=== PATIENT | female | born 1990 | race Caucasian/White ===

== ENCOUNTER 2023-09-08 14:34 | Outpatient (CLI) | payer BC, SELFPAY | END 2023-09-08 14:35 | disposition home or self-care (01) | LOC: NFLDREF 14:35 | PROVIDERS: PCP Family Medicine; Visit Provider Family Medicine | DX: E66.9 Obesity, unspecified (principal); F41.9 Anxiety disorder, unspecified | CPT/HCPCS: 84443 ==

== ENCOUNTER 2024-06-07 08:30 | Outpatient (CLI) | payer OTHER, SELFPAY ==
--- OUTSIDE RECORDS SUMMARY | 2024-06-07 13:14 | XMS_ITS | Encounter Summary ---
Author Organization [facility] Address [address] [place] [address] Care Team Providers Care Box Printing Machine Operator Name Role Phone No Primary/Referring, Phy Primary Care Provider Unavailable Reason for Visit * Reason Comments LACERATION, ARM Left forearm Encounter Details Date Type Department Care Team ([facility] st Contact Info) Description 03/20/2024 3:00 PM CDT Office [place] [facility] [address] [facility] [place] [address] Vita Miller PA-C [address] [place] [address] Forearm laceration, left, initial encounter (Primary Dx) Social History Tobacco Use Types Packs/Day Years Used Date Smoking Tobacco: Former Cigarettes Smokeless Tobacco: Never Comments:some smoking after last in 2018, occasional Alcohol Use Standard Drinks/Week Comments Not Currently 0 (1 standard drink = 0.6 oz pur e alcohol) Depression Answer Date Recor ded Last EPDS Total Score 14 11/16/2022 Last EPDS Self Harm Result 1-->hardly ever 11/16 Sex and Gender Information Value Date Recorded Sex Assigned at Not on file Gender Identity Not on file Sexual Orientation Not on file documented as of this encounter Last Filed Vital Signs Vital Sign Reading Time Taken Comments Blood Pressure 95/70 03/20/2024 3:03 PM CDT Pulse 77 03/20/2024 3:03 PM CDT Temperature 36.7 ??C (98 ??F) 03/20/2024 3:03 PM CDT Respiratory Rate 18 03/20/2024 3:03 PM CDT Oxygen Saturation 96% 03/20/2024 3:03 PM CDT Inhaled Oxygen Concentration - - Weight 61.2 kg (135 lb) 03/20/2024 3:03 PM CDT Height - - Body Mass Index 21.14 01/20/2023 6:10 AM CDT documented in this encounter Patient Instructions * Patient Instructions* Vita Miller PA-C - 03/20/2024 3:00 PM CDT Return for suture removal in 7-10 days. Please see the end of this packet for additional information regarding symptomatic cares and signs or symptoms that would warrant return for further evaluation. * Attachments The following attachments cannot be sent through Care Everywhere. * Lacerations: Stitches (Zimbabwean) documented in this encounter Progress Notes * Vita Miller PA-C - 03/20/2024 3:00 PM CDTAssociated Order(s): Laceration Repair Post-Procedure Diagnose(s): Forearm laceration, left, initial encounter Images from the original note were not included. Rooming notes: Laceration initial Where did this injury happen? At [facility] Date/time of Injury: 1 day(s) ago Where is your laceration located? Arm: left forearm Are you concerned of anything still in the wound? YES Did you clean the wound immediately with soap and water? Yes Is there any blood, pus or watery drainage coming from the wound? YES blood Do you have any numbness around the injured area? YES Do you have any weakness around the injured area? No Have you had a fever? No Shirley Leyva SUBJECTIVE: Courtney Crockett is a 33 y.o. old female who presents to the urgent care today by herself for evaluation of laceration to the left forearm sustained from a broken glass window yesterday evening around 8:00 p.m. at home. Patient wash the wound with tap water and applied butterfly bandage. I have personally reviewed the patient's allergies, medications, and past medical history in detailand updated the patient record as necessary. OBSERVED: Filed Vitals: 03/20/24 1503 BP: 95/70 Pulse: 77 Resp: 18 Temp: 98 ??F (36.7 ??C) TempSrc: Oral SpO2: 96% Weight: 135 lb (61.2 kg) Physical Exam Vitals reviewed. Constitutional: General: She is not in acute distress. Musculoskeletal: Left forearm: Laceration present. Arms: Comments: Distal sensation intact. Full range of motion of wrist and fingers. Skin: Comments: C-shaped laceration on the inner forearm of the left arm. Approximately 2.5 cm in length. ASSESSMENT / PLAN ICD-10-CM 1. Forearm laceration, left, initial encounter S51.812A Discussed benefits versus risk of wound closure. Given the location, gaping nature, and her work, through shared decision-making elected to perform wound closure with sutures. Laceration Repair Date/Time: 03/20/2024 4:36 PM Performed by: Vita Miller PA-C Authorized by: Vita Miller PA-C Consent: Consent obtained: Verbal Consent given by: Patient Alternatives discussed: No treatment and observation Anesthesia: Anesthesia method: Local infiltration Laceration details: Location: Shoulder/arm Shoulder/arm location: L lower arm Treatment: Amount of cleaning: Extensive Irrigation method: Pressure wash Visualized foreign bodies/material removed: no Skin repair: Repair method: Sutures Suture size: 5-0 Suture technique: Simple interrupted Number of sutures: 5 Repair type: Repair type: Simple Post-procedure details: Dressing: Antibiotic ointment and adhesive bandage Procedure completion: Tolerated well, no immediate complications Comments: Return for suture removal in 7-10 days. Tdap up-to-date. Discussed signs and symptoms that would warrant return to UC or ER in the interim. Detailed symptomatic cares and instructions discussed and outlined in AVS. They express understanding and are in agreement with the plan. Vita Miller PA-C 03/20/2024, 5:23 PM documented in this encounter Plan of Treatment Not on file documented as of this encounter Procedures Procedure Name Priority Date/Time Associated Diagnosis Comments LACERATION REPAIR Routine 03/20/2024 4:3 6 PM CDT Forearm laceration, left, initial encounter documented in this encounter Results * Laceration Repair (03/20/2024 4:36 PM CDT) Narrative EXTERNAL RESULTS - 03/20/2024 4:36 PM CDT Vita Miller PA-C ? 03/20/2024 ??8:20 PM Laceration Repair Date/Time: 03/20/2024 4:36 PM Performed by: Vita Miller PA-C Authorized by: Vita Miller PA-C ?? Consent: ??Consent obtained: ??Verbal ??Consent given by: ??Patient ??Alternatives discussed: ??No treatment and observation Anesthesia: ??Anesthesia method: ??Local infiltration Laceration details: ??Location: ??Shoulder/arm ??Shoulder/arm location: ??L lower arm Treatment: ??Amount of cleaning: ??Extensive ??Irrigation method: ??Pressure wash ??Visualized foreign bodies/material removed: no ?? Skin repair: ??Repair method: ??Sutures ??Suture size: ??5-0 ??Suture technique: ??Simple interrupted ??Number of sutures: ??5 Repair type: ??Repair type: ??Simple Post-procedure details: ??Dressing: ??Antibiotic ointment and adhesive bandage ??Procedure completion: ??Tolerated well, no immediate complications Comments: ?? Return for suture removal in 7-10 days. ?? Tdap up-to-date. Vita Miller PA-C [facility] PROCEDURES EXTERNAL RESULTS documented in this encounter Visit Diagnoses Diagnosis Forearm laceration, left, initial encounter- Primary documented in this encounter Care Teams Box Printing Machine Operator Relationship Specialty Start Date End Date No Primary/Referring, Phy PCP - General 10/17/21 documented as of this encounter
--- OUTSIDE RECORDS SUMMARY | 2024-06-07 13:14 | XMS_ITS | Encounter Summary ---
Author Organization [facility] Address [address] [place] [address] Care Team Providers Care Garbage Depot Worker Name Role Phone Clinic, [facility] Primary Care Provider Reason for Visit * Reason Comments Back Pain Letter Request For work Encounter Details Date Type Department Care Team (Late st Contact Info) Description 06/02/2024 12:35 PM CDT Office Visit [address] [address] Romina Sanchez PA-C [address] [place] [address] Acute bilateral low back pain without sciatica Social History Tobacco Use Types Packs/Day Years Used Date Smoking Tobacco: Never Smokeless Tobacco: Never Alcohol Use Standard Drinks/Week Comments Not Currently 0 (1 standard drink = 0.6 oz pur e alcohol) Adolescent Education Answer Date Record ed Getting School Help Needed Not on file 05/28 Sex and Gender Information Value Date Recorded Sex Assigned at Not on file Gender Identity Not on file Sexual Orientation Not on file documented as of this encounter Last Filed Vital Signs Vital Sign Reading Time Taken Comments Blood Pressure 124/76 06/02/2024 12:43 PM CDT Pulse 63 06/02/2024 12:43 PM CDT Temperature 36.7 ??C (98.1 ??F) 06/02/2024 12:43 PM C DT Respiratory Rate 17 06/02/2024 12:43 PM CDT Oxygen Saturation 98% 06/02/2024 12:43 PM CDT Inhaled Oxygen Concentration - - Weight - - Height - - Body Mass Index - - documented in this encounter Patient Instructions * Attachments The following attachments cannot be sent through Care Everywhere. * Back Pain (Haitian) documented in this encounter Progress Notes * Romina Sanchez PA-C - 06/02/2024 12:35 PM CDT Assessment & Plan Acute bilateral low back pain without sciatica Patient was seen for recheck of her low back pain with significant improvement of her symptoms. Shewas given a refill of Robaxin to use as needed. May continue ice, heat, consider physical therapy for education for any future episodes of back pain. She may return to full work duties without restrictions effective today. - methocarbamol (ROBAXIN) 500 MG tablet Dispense: 30 tablet; Refill: 0 No follow-ups on file. Romina Sanchez PA-C [facility] Mariana Valdez is a 33 year old female who presents to clinic today for the following health issues: Chief Complaint Patient presents with Back Pain Letter Request For work HPI Patient was seen 05/29/2024 for acute back pain. She was given a work excuse with lifting limitations on that date. Much improved. She still has minimal low back ache with some mild radiation into the left leg belowthe level of the knee but this is quite improved from previous pain level. She has been able to bend, twist, change position, and squat without difficulty the last 24 hours. She is ready to return towork without restrictions but does need a note to do so. She denies any current bowel or bladder dys function. She was hoping to get a refill of the muscle relaxant as that is quite helpful for her. She will be finishing up prednisone. Review of Systems Constitutional, HEENT, cardiovascular, pulmonary, gi and gu systems are negative, except as otherwise noted. Objective BP 124/76 Pulse 63 Temp 98.1 ??F (36.7 ??C) Resp 17 SpO2 98% Physical Exam Musculoskeletal: Lumbar back: No swelling, tenderness or bony tenderness. Normal range of motion. Negative right straight leg raise test and negative left straight leg raise test. No scoliosis. Pt ambulates well without antalgic gait, is able to rise up and off exam table. SLR negative B. Figure 4 negative B. Muscular strength, sensation and DTR are symmetrical and WNL for LE B documented in this encounter Plan of Treatment Not on file documented as of this encounter Visit Diagnoses Diagnosis Acute bilateral low back pain without sciatica documented in this encounter Care Teams Garbage Depot Worker Relationship Specialty Start Date End Date Clinic, [address] [address] PCP - General 04/18/17 documented as of this encounter
--- OUTSIDE RECORDS SUMMARY | 2024-06-07 13:14 | XMS_ITS | Clinical Summary ---
Author Organization [facility] Address [address], [place] [address] Care Team Providers Care Fundraising Sale Representative Name Role Phone No Primary/Referring, Phy Primary Care Provider Unavailable Source Comments You are receiving this document as you are listed as the primary care provider,follow-up provider, or the patient has been referred to you for consultation.This is in compliance with the Medicare and[facility] EHR Incentive Program,which states Providers who transition their patient to another setting of careor provider of care or refers their patient to another provider of care shouldprovide summary care record for each transition of care or referral. [employer] Allergies No known active allergies Medications Medication Sig Dispensed Refills Start Date End Date Status amphetamine-dextroa mphetamine (ADDERALL) 20 MG tablet Take 1 Tablet (20 mg) by mouth three times a day. 07/12/2023 Active sertraline (ZOLOFT) 25 MG tablet Take 2 Tablets (50 mg) by mouth daily. Start by taking 1/2 tablet (12.5 mg) for one week. Then increase to 25 (1 tablet) for one week. Then increase to 2 tablets daily. 90 Tablet 1 08/06/2023 Active Additional Information Patient not taking.Reported on 10/06/2023 hydrOXYzine HCl (ATARAX) 25 MG tablet Take 2 Tablets (50 mg) by mouth three times a day as needed for Anxiety. 90 Tablet 1 08/06/2023 Active Additional Information Patient not taking.Reported on 10/06/2023 FLUoxetine (PROZAC) 10 MG capsule Take 1 Capsule (10 mg) by mouth daily. 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 Resolved Problems Problem Noted Date Diagnosed Date Resolved Date GBS bacteriuria 12/30/2022 06/30/2023 Acute blood loss anemia 11/19/201508/06 Excessive weight gain during in third trimester 09/16/2015 08/20/2017 Encounter for care in first trimester of first 05/07/2015 11/25/2015 Overview (11/19/2015): EDC 11/09/14 by 11w2d US not c/w LMP FOB [place] Transfer of care from [place] at 13 weeks Rubella nonimmune QUAD Considering CF testing UTI in early 2nd trimester, treated with Ammox, JAVY-negative [facility] Abnormal Papanicolaou smear of cervix 08/09/2014 05/07/2015 Overview (04/28/2017): Abnormal Pap smear Frequent UTI 08/09/2014 05/07/2015 Tobacco user 08/09/2014 05/07/2015 Encounters Date Type Department Care Team Description 03/20/2024 3:00 PM CDT Office Visit [facility] [address] [place] [address] Vita Miller PA-C Forearm laceration, left, initial encounter (Primary Dx) from Last 3 Months Immunizations Name Administration Dates Next Due 4vHPV (Gardasil) 08/06/2008,04/06/2008, 8 DTP 02/01/1991,1990,1990 DTaP 11/19/1994 HepB Ped/Adol (0-18 yrs) 12/19/2002,07/11/2002,0 05/26/2002 Hib, Unspecified Formulation 01/22/1992 MCV4 Menveo 2m.+ (two vial) 02/19/2009 MMR 11/19/2015,11/19/1994,01/22/1992 OPV, Trivalent (Orimune or tOPV) 11/19/1994,01/05,1990,1990 Td 06/26/2003 Tdap 12/03/2022, 3(Deferred: Patient Refused - will return 11/19/22),12/26/2019,03/04/2018,06/07/2014 Family History Medical History Relation Name Comments No Known Problems Father No Known Problems Mother No Known Problems Brother No Known Problems Maternal Grandfather No Known Problems Maternal Grandmother No Known Problems Paternal Grandfather No Known Problems Paternal Grandmother No Known Problems Sister 1 Kidney Disorder Sister 2 renal failur e Relation Name Status Comments Father Alive Mother Alive Brother Alive Maternal Grandfather Maternal Grandmother Alive Paternal Grandfather Paternal Grandmother Sister 1 Alive Sister 2 Social History Tobacco Use Types Packs/Day Years [...] on file Sexual Orientation Not on file Last Filed Vital Signs Vital Sign Reading Time Taken Comments Blood Pressure 95/70 03/20/2024 3:03 PM CDT Pulse 77 03/20/2024 3:03 PM CDT Temperature 36.7 ??C (98 ??F) 03/20/2024 3:03 PM CDT Respiratory Rate 18 03/20/2024 3:03 PM CDT Oxygen Saturation 96% 03/20/2024 3:03 PM CDT Inhaled Oxygen Concentration - - Weight 61.2 kg (135 lb) 03/20/2024 3:03 PM CDT Height 170.2 cm (5' 7) 01/20/2023 6:10 AM CDT Body Mass Index 21.14 01/20/2023 6:10 AM CDT Plan of Treatment Health Maintenance Due Date Last Done Comments Adult Preventive Visit 2008 Cervical Cancer Screening Due 04/19/2015 04/18/2015 COVID-19 Vaccine ( season) 2024 Influenza (#1) 2024 DTaP/Tdap/Td (9 - Tdap) 12/03/2032 12/04/19, 12/26/2019, 03/04/2018, Additional history exists Zoster/Shingles (1 of 2) 2040 Hib Completed 01/22/1992 IPV (Polio) Completed 11/19/1994, 01/05, 1990, Additional history exists HepB Completed 12/19/2002, 01/2002, 05/26/2002 HPV Vaccine Completed 08/06/2008, 09/2007, 12/19/2007 MCV4 Completed 02/19/2009 HIV Screening (Preventive Services) Completed 12/03/2022, 04/18/2015 Hep C Screening (Preventive Services) Completed 12/03/2022 HepA Aged Out No longer eligi ble based on patient's age to complete this topic Pneumococcal Aged Out No longer eligi ble based on patient's age to complete this topic Procedures Procedure Name Priority Date/Time Associated Diagnosis Comments LACERATION REPAIR Routine 03/20/2024 4:3 6 PM CDT Forearm laceration, left, initial encounter HIV 1/2 AG/AB 4TH GEN Routine 12/03/2022 3:08 PM CDT in multigravida HEPATITIS C ANTIBODY, WITH REFLEX Routine 12/03/2022 3:08 PM CDT in multigravida PAP TEST, ROUTINE Routine 04/18/2015 4:0 5 PM CDT Encounter for supervision of normal first in first trimester [V22.0] from Last 3 Months or Most Recently Relevant to Health Maintenance Results * Laceration Repair (03/20/2024 4:36 PM [...] days. ?? Tdap up-to-date. Vita Miller PA-C [facility] PROCEDURES EXTERNAL RESULTS * HIV 1/2 Ag/Ab 4th Generation (12/03/2022 3:08 PM CDT) HIV 1/2 Antigen/Antib tasha (4th generation) Negative (Non Reactive) Negative (Non Reactive) 12/04/2022 10:08 AM CDT [facility] Comment:HIV-1 p24 Antigen an d HIV-1/HIV-2 Antibody not detected Blood Venipuncture / Unknown 12/03/2022 3:08 PM CDT 12/03/2022 3:11 PM CDT Cony Moreno MD LAB_1 [facility] [address] [place] [address], [facility] [phone] * Hepatitis C Antibody, with Reflex (12/03/2022 3:08 PM CDT) Pathologist [facility] Hepatitis C Antibody Negative (Non Reactive) Negative (Non Reactive) 12/03/2022 7:20 PM CDT [facility] Comment:Antibodies to HCV no t detected. Does not exclude the possiblity of exposure to HCV. Blood Venipuncture / Unknown 12/03/2022 3:08 PM CDT 12/03/2022 3:11 PM CDT Cony Moreno MD LAB_1 Performing Organization Address City/[facility]/ZIP Co de Phone Number [facility] [address] [address], [facility] [phone] * PAP TEST, ROUTINE (04/18/2015 4:05 PM CDT) Pathologist [facility] Cytology, Pap (NOTE) Culture Media Laboratory Assistant Cytology Report Patient Name: COURTNEY CROCKETT Taken: 04/18/2015 Received: 04/18/2015 Reported: 04/29/2015 Physician(s): LAN AUSTIN ?Source of Specimen Pap Test, Routine Cervical/Endocervi sheri: ?Specimen Adequacy ?Satisfactory for evaluation. ??Endocervical component absent. ? Final Cytologic Interpretation/Res ult NEGATIVE FOR INTRAEPITHELIAL LESION OR MALIGNANCY (NILM) ?? Electronically Signed Out By Cristina SIMPSON(ASCP) Cristina SIMPSON(ASCP) ? Pap Smear History Date of Last Menstrual Period: 01/18/2015 ?? Microscopic Description Microscopic examination is performed. [facility] Department of Pathology [address] [place] [address] ??[id number] [facility] 04/18/2015 4:05 PM CDT 04/18/2015 6:00 PM CDT Lan Austin MD LAB_1 [facility] [address] [place] [address] from Last 3 Months or Most Recently Relevant to Health Maintenance Advance Directives * Full Code (Latest Code Status on File) Date Activated Date Inactivated Comments 01/20/2023 6:06 AM 01/22/2023 6:29 PM * Full Code Date Activated Date Inactivated Comments 11/14/2015 3:21 PM 11/19/2015 5:16 PM * Full Code Date Activated Date Inactivated Comments 10/24/2014 12:42 PM 10/24/2014 7:17 PM Care Teams Fundraising Sale Representative Relationship Specialty Start Date End Date No Primary/Referring, Phy PCP - General 10/17/21
--- OUTSIDE RECORDS SUMMARY | 2024-06-07 13:14 | XMS_ITS | Encounter Summary ---
Author Organization [facility] Address [address] [place] [address] Care Team Providers Care Sales Assistant Displays Name Role Phone Clinic, [facility] Primary Care Provider Reason for Visit * Reason Comments Back Pain Lower back couple da ys shooting pain out of no where Encounter Details Date Type Department Care Team (Late st Contact Info) Description 05/29/2024 1:55 PM CDT Office Visit [address] [address] Linda You, [facility] [address] [place] [address] [phone] Acute bilateral low back pain without sciatica (Primary Dx) Social History Tobacco Use Types [...] Sign Reading Time Taken Comments Blood Pressure 120/70 05/29/2024 2:05 PM CDT Pulse 94 05/29/2024 2:05 PM CDT Temperature 36.5 ??C (97.7 ??F) 05/29/2024 2:05 PM CD T Respiratory Rate 18 05/29/2024 2:05 PM CDT Oxygen Saturation 100% 05/29/2024 2:05 PM CDT Inhaled Oxygen Concentration - - Weight - - Height - - Body Mass Index - - documented in this encounter Patient Instructions * Patient Instructions* Linda You PA-C - 05/29/2024 1:55 PM CDT Take Prednisone in the morning and with food. Take Tylenol 1000 mg every 6 hours. I will call you with your urine test result. Avoid bending and lifting anything greater than 20 pounds. Take Robaxin up to 4 times per day. Follow up next week with your PCP for your physical Seek emergency medical attention if you develop saddle numbness or loss of control of bowel function. documented in this encounter Progress Notes * Linda You PA-C - 05/29/2024 1:55 PM CDT Patient presents with: Back Pain: Lower back couple days shooting pain out of no where Clinical Decision Making: Patient experiencing sudden spastic lower back pain after reported heavy lifting throughout the day. Suspect muscle strain. Negative straight leg raise not consistent with disc herniation. No traumasmajorly concerning for vertebral fracture. Patient has close follow-up with primary care for physical in 1 week. Recommend supportive care including prednisone, methocarbamol, and oxycodone for breakthrough pain. Patient concerned about possible kidney involvement although her pain is lower than where the kidneys are. UA completed for reassurance. It is normal. ICD-10-CM 1. Acute bilateral low back pain without sciatica M54.50 UA Macroscopic with reflex to Microscopic and Culture - Clinic Collect predniSONE (DELTASONE) 20 MG tablet methocarbamol (ROBAXIN) 500 MG tablet oxyCODONE (ROXICODONE) 5 MG tablet Patient Instructions Take Prednisone in the morning and with food. Take Tylenol 1000 mg every 6 hours. I will call you with your urine test result. Avoid bending and lifting anything greater than 20 pounds. Take Robaxin up to 4 times per day. Follow up next week with your PCP for your physical Seek emergency medical attention if you develop saddle numbness or loss of control of bowel function. HPI: Courtney Crockett is a 33 year old female who presents today with concerns of bilateral lower back pain that started 2 days ago. No known injury, but she does bend to worm picker things for her kids a lot. 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 [facility] and her kids on the day that is started. She did feel sudden painwhen she was lifting her child into bed. She thought it would sleep off. She has taken Advil, Epsomsalt soak, and a Walnut balm pad. Standing wrong hurts. Moving from sitting to standing worsens things. She reports intermittent radiation into the legs. No previous spine history. History obtained from the patient. Problem List: There are no relevant problems documented for this patient. Past Medical History: Diagnosis Date ADHD Anxiety History of Clostridium difficile colitis Social History Tobacco Use Smoking status: Never Smokeless tobacco: Never Substance Use Topics Alcohol use: Not Currently Review of Systems Vitals: 05/29/24 1405 BP: 120/70 Pulse: 94 Resp: 18 Temp: 97.7 ??F (36.5 ??C) TempSrc: Oral SpO2: 100% Physical Exam Vitals and nursing note reviewed. Constitutional: General: She is not in acute distress. Appearance: She is not toxic-appearing or diaphoretic. HENT: Head: Normocephalic and atraumatic. Right Ear: External ear normal. Left Ear: External ear normal. Eyes: Conjunctiva/sclera: Conjunctivae normal. Pulmonary: Effort: Pulmonary effort is normal. No respiratory distress. Musculoskeletal: Comments: No spinal tenderness. Paraspinous muscles are tender bilaterally in the lumbar region. Negative straight leg raise. Pain seems spastic and patient is moving slowly and guarding. Neurological: Mental Status: She is alert. Psychiatric: Mood and Affect: Mood normal. Behavior: Behavior normal. Thought Content: Thought content normal. Judgment: Judgment normal. Results: Results for orders placed or performed in visit on 05/29/24 UA Macroscopic with reflex to Microscopic and Culture - Clinic Collect Status: Normal Specimen: Urine, Clean Catch Result Value Ref Range Color Urine Yellow Colorless, Straw, Light Yellow, Yellow Appearance Urine Clear Clear Glucose Urine Negative Negative mg/dL Bilirubin Urine Negative Negative Ketones Urine Negative Negative mg/dL Specific [place] Urine 1.015 1.005 - 1.030 Blood Urine Negative Negative pH Urine 7.5 5.0 - 8.0 Protein Albumin Urine Negative Negative mg/dL Urobilinogen Urine 0.2 0.2, 1.0 E.U./dL Nitrite Urine Negative Negative Leukocyte Esterase Urine Negative Negative Narrative Microscopic not indicated At the end of the encounter, I discussed results, diagnosis, medications. Discussed red flags for immediate return to clinic/ER, as well as indications for follow up if no improvement. Patient understood and agreed to plan. Patient was stable for discharge. documented in this encounter Plan of Treatment Not on file documented as of this encounter Procedures Procedure Name Priority Date/Time Associated Diagnosis Comments UA MACROSCOPIC WITH REFLEX TO MICRO AND CULTURE Routine 05/29/2024 2:54 PM CDT Acute bilateral low back pain without sciatica documented in this encounter Results * UA Macroscopic with reflex to Microscopic and Culture - Clinic Collect (05/29/2024 2:54 PM CDT) Color Urine Yellow Colorless, Straw, Light Yellow, Yellow 05/29/2024 2:59 PM CDT [facility] Appearance Urine Clear Clear 05/29/20 2:59 PM CDT [facility] Glucose Urine Negative Negative mg/dL 05/29/2024 2:59 PM CDT [facility] Bilirubin Urine Negative Negative 2:59 PM CDT [facility] Ketones Urine Negative Negative mg/dL 05/29/2024 2:59 PM CDT [facility] Specific [place] Urine 1.015 1.005 - 1.030 05/29/2024 2:59 PM CDT [facility] Blood Urine Negative Negative 05/29/2024 2:59 PM CDT [facility] pH Urine 7.5 5.0 - 8.0 05/29/2024 2:59 PM CDT [facility] Protein Albumin Urine Negative Negative mg/dL 05/29/2024 2:59 PM CDT [facility] Urobilinogen Urine 0.2 0.2, 1.0 E.U./dL 05/29/2024 2:59 PM CDT [facility] Nitrite Urine Negative Negative 05/29/2024 2:59 PM CDT [facility] Leukocyte Esterase Urine Negative Negative 05/29/2024 2:59 PM CDT [facility] Urine URINE SPECIMEN OBTAINED BY CLEAN CATCH PROCEDURE / Unknown Non-blood Collection / Unknown 05/29/2024 2:54 PM CDT 05/29/2024 2:56 PM CDT Narrative [facility] - 05/29/2024 2:59 PM CDT Microscopic not indicated Linda You PA-C LAB - URINE ORDERABL ES [facility] [address] documented in this encounter Visit Diagnoses Diagnosis Acute bilateral low back pain without sciatica- Primary documented in this encounter Care Teams Sales Assistant Displays Relationship Specialty Start Date End Date Clinic, [facility] [address] [place] [address] PCP - General 04/18/17 documented as of this encounter
--- OUTSIDE RECORDS SUMMARY | 2024-06-07 13:14 | XMS_ITS | Encounter Summary ---
Author Organization [facility] Address [address] [place] [address] Care Team Providers Care Surgical Assist Name Role Phone [facility] Primary Care Provider Encounter Details Date Type Department Care Team (Latest Contact Info) Description 06/02/2024 Travel Social History Tobacco Use Types Packs/Day Years [...] on file documented as of this encounter Plan of Treatment Not on file documented as of this encounter Visit Diagnoses Not on filedocumented in this encounter Care Teams Surgical Assist Relationship Specialty Start Date End Date [facility] [address] [place] [address] PCP - General 04/18/17 documented as of this encounter
--- OUTSIDE RECORDS SUMMARY | 2024-06-07 13:14 | XMS_ITS | Encounter Summary ---
Author Organization [facility] Address [address] [place] [address]. [place] [address] Care Team Providers Care Personal Coach Name Role Phone [facility] Primary Care Provider Encounter Details Date Type Department Care Team (Late st Contact Info) Description 05/29/2024 Telephone [facility] [place] [id number] [place], [place] [address] [address] Linda You PA-C [facility] [address] [place] [phone] Social History Tobacco Use Types Packs/Day Years [...] on file documented as of this encounter Miscellaneous Notes * Telephone Encounter - Linda You PA-C - 05/29/2024 3:17 PM CDT Left message to call back. Urine test was negative for any signs of infection or blood in the urine. No change to treatment plan. documented in this encounter Plan of Treatment Not on file documented as of this encounter Visit Diagnoses Not on filedocumented in this encounter Care Teams Personal Coach Relationship Specialty Start Date End Date [facility] [address] [place] [address] PCP - General 04/18/17 documented as of this encounter
--- OUTSIDE RECORDS SUMMARY | 2024-06-07 13:14 | XMS_ITS | Clinical Summary ---
Author Organization [employer] [facility] Address [place], [place] [address] Care Team Providers Care Marketing Budget Analyst Name Role Phone Pcp, No Primary Care Provider Unavailabl e Allergies No known active allergies Medications Medication Sig Dispensed Refills Start Date End Date Status Amphetamine-Dextroamph etamine (ADDERALL) 30 mg tablet Take 1 tablet by mouth once daily 0 10/30/2016 Active Active Problems Problem Noted Date Diagnosed Date Urinary tract infection, site not specified 04/07 Depressive disorder, not elsewhere classified Impetigo 01/10/2009 Urinary frequency 08/28/2008 Hemangioma of skin and subcutaneous tissue 07/16 Unspecified otitis media 07/16/2008 Other chronic allergic conjunctivitis 05/06/2007 Allergic rhinitis, cause unspecified 05/06/2007 Dysuria 04/18/2007 Herpes simplex without mention of complication 0 04/06/2007 Infective otitis externa, unspecified 04/06/2007 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 Leukorrhea, not specified as infective 6 Immunizations Name Administration Dates Next Due Human Papilloma Virus Vaccine 08/06/2008, 008,12/19/2007 Meningococcal Vaccine (Menactra) 02/19/2009 Social History Tobacco Use Types Packs/Day Years Used Date Smoking Tobacco: Never Assessed Sex and Gender Information Value Date Recorded Sex Assigned at Not on file Gender Identity Not on file Sexual Orientation Not on file Obstetrics History Last Filed Vital Signs Vital Sign Reading Time Taken Comments Blood Pressure 110/70 10/30/2016 1:20 PM POSTAL SUPERINTENDENT Pulse 84 02/09/2008 10:37 AM CDT Temperature 36.7 ??C (98.1 ??F) 04/30/2009 8:33 AM CD T Respiratory Rate 14 10/30/2016 1:20 PM POSTAL SUPERINTENDENT Oxygen Saturation - - Inhaled Oxygen Concentration - - Weight 73.5 kg (162 lb) 10/30/2016 1:20 PM POSTAL SUPERINTENDENT Height 170.2 cm (5' 7.01) 04/26/2009 11:49 AM C DT Body Mass Index - - Plan of Treatment Health Maintenance Due Date Last Done Comments Tdap 2001 Depression screening for age 12+ 2002 HIV for age 15-65 2005 BMI (ht and wt on same day) for age 18+ 2008 Hepatitis C screening for ag e 18-79 2008 Tetanus booster 2010 COVID-19 vaccine series ( season) 2024 Influenza for age 9-49 05/07/2024 Pap test for age 21-65 03/16/2026 , 03/16/2023, 07/18/2019 Pneumococcal series for age 6-64 Aged Out No longer eligible b ased on patient's age to complete this topic Procedures Procedure Name Priority Date/Time Associated Diagnosis Comments HPV HIGH RISK Routine 03/16/2023 1:15 PM CDT from Last 3 Months or Most Recently Relevant to Health Maintenance Results * HPV HIGH RISK (03/16/2023 1:15 PM CDT) TYPE 16 Negative Negative 03/22/2023 2:23 PM CDT [facility] TYPE 18 Negative Negative 03/22/2023 2:23 PM CDT [facility] OTHER HIGH RISK TYPES Negative Negative 03/22/2023 2:23 PM CDT [facility] Other (Cervical/Vagina l) 03/16/2023 1:15 PM CDT 03/17/2023 5:32 PM [facility]T [facility] 03/22/2023 2:23 PM CDT HPV types 16, 18, 31, 33, 35, 39, 45, 51, 52, 56, 58, 59, 66 and 68 DNA were undetectable or below the pre-set threshold. Methodology: [employer] 4800 HPV Test Mary Lawson MD MICROBIOLOGY [facility] [address] [place] [address], from Last 3 Months or Most Recently Relevant to Health Maintenance Care Teams Marketing Budget Analyst Relationship Specialty Start Date End Date Pcp, No . PCP - General 10/30/16
--- OUTSIDE RECORDS SUMMARY | 2024-06-07 13:14 | XMS_ITS | Referral Summary ---
Author Organization [facility] Address [address] [place] [address] Care Team Providers Care Field Cane Scaler Name Role Phone [facility], [facility] Primary Care Provider Encounters Date Type Department Care Team Description 06/02/2024 Travel 06/02/2024 12:35 PM CDT Office Visit [address] [address] Romina Sanchez PA-C Acute bilateral low back pain without sciatica 05/29/2024 Telephone [facility] Centralized Scheduling [address] [place] [address] [facility] Medical Results 05/29/2024 Telephone [facility] [address] [address] Linda You PA-C 05/29/2024 Travel 05/29/2024 1:55 PM CDT Office Visit [address] [phone] Linda You PA-C Acute bilateral low back pain without sciatica (Primary Dx) from Last 3 Months Allergies No known active allergies Medications Medication Sig Dispensed Refills Start Date End Date Status Amphetamine-Dextr oamphetamine (ADDERALL PO) Take 30 mg by mouth 2 times daily Active LORazepam (ATIVAN) 0.5 MG tablet Take 0.5-1 tablets (0.25-0.5 mg) by mouth every 8 hours as needed for anxiety 6 tablet 04/17/2017 Active methocarbamol (ROBAXIN) 500 MG tabletIndications :Acute bilateral low back pain without sciatica Take 1 tablet (500 mg) by mouth 4 times daily as needed for muscle spasms. Do not drive within 8 hours of taking a dose 30 tablet 06/02/2024 Active predniSONE (DELTASONE) 20 MG tabletIndications :Acute bilateral low back pain without sciatica Take 2 tablets (40 mg) by mouth daily for 5 days. Take in the morning and with food 10 tablet 05/29/2024 06/03/2024 methocarbamol (ROBAXIN) 500 MG tabletIndications :Acute bilateral low back pain without sciatica Take 1 tablet (500 mg) by mouth 4 times daily as needed for muscle spasms. Do not drive within 8 hours of taking a dose 20 tablet 05/29/2024 06/02/2024 Discontinued( Reorder (No AVS)) oxyCODONE (ROXICODONE) 5 MG tabletIndications :Acute bilateral low back pain without sciatica Take 1 tablet (5 mg) by mouth every 6 hours as needed for pain. 12 tablet 05/29/2024 06/02/2024 Social History Tobacco Use Types Packs/Day Years [...] CDT Inhaled Oxygen Concentration - - Weight 90.5 kg (199 lb 8 oz) 02/21/2020 10:49 AM CDT Height 170.2 cm (5' 7) 09/25/2019 8:51 AM SC[facility]TS Body Mass Index 31.25 09/25/2019 8:51 AM SCOUTS Plan of Treatment Not on file Procedures Procedure Name Priority Date/Time Associated Diagnosis Comments UA MACROSCOPIC WITH REFLEX TO MICRO AND CULTURE Routine 05/29/2024 2:54 PM CDT Acute bilateral low back pain without sciatica ABSTRACT HIV Routine 07/18/2019 from Last 3 Months or Most Recently Relevant to Health Maintenance Results * UA Macroscopic with reflex to [...] 05/29/2024 2:59 PM CDT [facility] Specific [place] Urine 1.015 1.005 - 1.030 05/29/2024 2:59 [...] 2:59 PM CDT Microscopic not indicated Linda A Avelino PA-C LAB - URINE ORDERABL ES [facility] [address] * ABSTRACT HIV (07/18/2019) HIV 1&2 EXT Non-Reacti ve Non-Reacti ve [facility] Blood specimen (specimen) 07/18/2019 Narrative Marcie Valdez - 07/18/2019 [facility] External Result Historical Provider LAB - HIM EXTERNAL R ESULT Performing Organization Address City/[facility]/ZIP Co de Phone Number [facility] [address] [place] [address] from Last 3 Months or Most Recently Relevant to Health Maintenance Care Teams Field Cane Scaler Relationship Specialty Start Date End Date Clinic, [facility] [address] [place] [address] PCP - General 04/18/17
--- OUTSIDE RECORDS SUMMARY | 2024-06-07 13:14 | XMS_ITS | Encounter Summary ---
Author Organization [place] Address [address] [place] [address] Care Team Providers Care Digging Machine Operator Name Role Phone [facility] Primary Care Provider Encounter Details Date Type Department Care Team (Latest Contact Info) Description 05/29/2024 Travel Social History Tobacco Use Types Packs/Day [...] on filedocumented in this encounter Care Teams Digging Machine Operator Relationship Specialty Start Date End Date [facility] [address] [place] [address] PCP - General 04/18/17 documented as of this encounter
--- OUTSIDE RECORDS SUMMARY | 2024-06-07 13:14 | XMS_ITS | Clinical Summary ---
Author Organization [facility] Address [address] [facility] [place] [address] Care Team Providers Care Director Of Instrumental Music Name Role Phone Clinic, [facility] Primary Care Provider Allergies No known active allergies Medications Medication [...] needed for pain. 12 tablet 05/29/2024 06/02/2024 Encounters Date Type Department Care Team Description 06/02/2024 12:35 PM CDT Office Visit [facility] [address] [place] [address] Romina Sanchez PA-C Acute bilateral low back pain without sciatica 06/02/2024 Travel 05/29/2024 1:55 PM CDT Office Visit [facility] [address] [place] [address] Linda You PA-C Acute bilateral low back pain without sciatica (Primary Dx) 05/29/2024 Telephone [facility] Centralized Scheduling [address] [place] [address] [facility] Medical Results 05/29/2024 Telephone [facility] [place] [address] [place] [address] Linda You PA-C 05/29/2024 Travel from Last 3 Months Social History Tobacco Use Types Packs/Day Years [...] 170.2 cm (5' 7) 09/25/2019 8:51 AM DANCE THERAPIST Body Mass Index 31.25 09/25/2019 8:51 AM DANCE THERAPIST Plan of Treatment Health Maintenance Due Date Last Done Comments ADVANCE CARE PLANNING 1990 ANNUAL REVIEW OF HM ORDERS 1990 YEARLY PREVENTIVE VISIT 1990 COVID-19 Vaccine (#1) 1995 HEPATITIS C SCREENING 2008 PHQ-2 (once per calendar year) 2023 INFLUENZA VACCINE (#1) 2024 PAP 03/16/2026 03/16/2023, 03/06, 04/18/2015 DTAP/TDAP/TD IMMUNIZATION (9 - Td or Tdap) 12/03/2032 12/03/2022, 12/26/2019, 03/04/2018, Additional history exists RSV VACCINE (1 - 1-dose 75+ series) 2065 HEPATITIS B IMMUNIZATION Completed , 07/11/2002, 05/26/2002 HPV IMMUNIZATION Completed 08/06/2008, 09/2007, 12/19/2007 MENINGITIS IMMUNIZATION Completed 02/19/2009 HIV SCREENING Completed 07/18/2019 Pneumococcal Vaccine: Pediatrics (0 to 5 Years) and At-Risk Patients (6 to 64 Years) Aged Out No longer eligible based on patient's age to complete this topic RSV MONOCLONAL ANTIBODY Aged Out No l onger eligible based on patient's age to complete this [...] [facility] Appearance Urine Clear Clear 05/29/20 24 2:59 PM CDT [facility] Glucose Urine Negative Negative mg/dL 05/29/2024 2:59 PM CDT [facility] Bilirubin Urine Negative Negative 4 2:59 PM CDT [facility] Ketones Urine Negative Negative mg/dL 05/29/2024 2:59 PM CDT [facility] Specific [place] Urine 1.015 1.005 - 1.030 05/29/2024 2:59 [...] LAB - URINE ORDERABL ES [facility] [address] * ABSTRACT HIV (07/18/2019) HIV 1&2 EXT Non-Reacti ve Non-Reacti ve [facility] Blood specimen (specimen) 07/18/2019 Marcie Woods - 07/18/2019 [place] [facility] External Result Historical Provider LAB - HIM EXTERNAL R ESULT [facility] [address] [place] [address] from Last 3 Months or Most Recently Relevant to Health Maintenance Care Teams Director Of Instrumental Music Relationship Specialty Start Date End Date Clinic, [address] [address] PCP - General 04/18/17
--- OUTSIDE RECORDS SUMMARY | 2024-06-07 13:14 | XMS_ITS | Encounter Summary ---
Author Organization [facility] Address [address] [place] [address] Care Team Providers Care Broadloom Weaver Name Role Phone Clinic, [facility] Primary Care Provider Reason for Visit * Reason Onset Date Comments Results 05/29/2024 Encounter Details Date Type Department Care Team (Late st Contact Info) Description 05/29/2024 Telephone [facility] Centralized Scheduling [address] [place] [address] [facility] [address] [place], [place] [id number] Results Social History Tobacco Use Types Packs/Day Years [...] encounter Miscellaneous Notes * Telephone Encounter - Eun Mello RN - 05/29/2024 5:04 PM CDT RN spoke with pt regarding results. Pt verbalized understanding and had no further questions. Eun Pulido RN * Telephone Encounter - Cassy Arriola - 05/29/2024 4:45 PM CDT Test Results Who ordered the test: Linda You Type of test: Lab Date of test: 05/29 Where was the test performed: [facility] What are your questions/concerns?: requesting lab results Okay to leave a detailed message?: Yes at Home number on file [phone] (home) documented in this encounter Plan of Treatment Not on file documented as of this encounter Visit Diagnoses Not on filedocumented in this encounter Care Teams Broadloom Weaver Relationship Specialty Start Date End Date [address] [address] PCP - General 04/18/17 documented as of this encounter
--- OUTSIDE RECORDS SUMMARY | 2024-06-07 13:15 | XMS_ITS | Encounter Summary ---
Author [facility] Address [address] [place] [address] Care Team Providers Care Game Moderator Name Role Phone No Primary/Referring, Alexa Primary Care Provider Unavailable Encounter Details Date Type Department Care Team (Late st Contact Info) Description 11/14/2015 Consent for Procedure/Treatme nt Med Surg [address] [place] [address] [facility] INFORMED CONSENT Social History Tobacco Use Types Packs/Day Years Used Date Smoking Tobacco: Former Cigarettes 0 12/23/2014 - 03/15/2015 Smokeless Tobacco: Never Alcohol Use Standard Drinks/Week Comments Yes 0 (1 standard drink = 0.6 oz pure alcohol) Denies alcohol use in . Comments Yes Sex and Gender Information Value Date Recorded Sex Assigned at Not on file Gender Identity Not on file Sexual Orientation Not on file documented as of this encounter Plan of Treatment Not on file documented as of this encounter Visit Diagnoses Not on filedocumented in this encounter Care Teams Game Moderator Relationship Specialty Start Date End Date No Primary/ReferringAlexa PCP - General 10/17/21 documented as of this encounter
--- OUTSIDE RECORDS SUMMARY | 2024-06-07 13:15 | XMS_ITS | Encounter Summary ---
Author Organization [facility] Address [address] [place] [address] Care Team Providers Care Crusher Loader Equipment Operator Name Role Phone No Primary/Referring, Phy Primary Care Provider Unavailable Encounter Details Date Type Department Care Team (Late st Contact Info) Description 10/24/2014 Consent for Procedure/Treatme nt Same Day Surgery [address] [place] [id number] Richard Juan MD [address] [place] [address] F CONSENT FOR SURGERY OR PROCEDURE Social History Tobacco Use Types Packs/Day Years Used Date Smoking Tobacco: Former Cigarettes Smokeless Tobacco: Never Alcohol Use Standard Drinks/Week Comments Yes 0 (1 standard drink = 0.6 oz pur e alcohol) Social Sex and Gender Information Value Date Recorded Sex Assigned at Not on file Gender Identity Not on file Sexual Orientation Not on file documented as of this encounter Plan of Treatment Not on file documented as of this encounter Visit Diagnoses Not on filedocumented in this encounter Care Teams Crusher Loader Equipment Operator Relationship Specialty Start Date End Date No Primary/ReferringAlexa PCP - General 10/17/21 documented as of this encounter
--- OUTSIDE RECORDS SUMMARY | 2024-06-07 13:15 | XMS_ITS | Encounter Summary ---
Author Organization [facility] Address [address] [place] [id number] Care Team Providers Care Welder Production Line Combination Name Role Phone No Primary/Referring, Phy Primary Care Provider Unavailable Encounter Details Date Type Department Care Team (Late st Contact Info) Description 07/23/2014 Outside Hospital External to External, [place] [address] [facility] Social History Tobacco Use Types Packs/Day Years Used Date Smoking Tobacco: Never Assessed Sex and Gender Information Value Date Recorded Sex Assigned at Not on file Gender Identity Not on file Sexual Orientation Not on file documented as of this encounter Plan of Treatment Not on file documented as of this encounter Visit Diagnoses Not on filedocumented in this encounter Care Teams Welder Production Line Combination Relationship Specialty Start Date End Date No Primary/Referring, Aleax PCP - General 10/17/21 documented as of this encounter
--- OUTSIDE RECORDS SUMMARY | 2024-06-07 13:15 | XMS_ITS | Encounter Summary ---
Author [facility] Address [address], [place] [address] Care Team Providers Care Carbonator Name Role Phone No Primary/Referring, Alexa Primary Care Provider Unavailable Encounter Details Date Type Department Care Team (Late st Contact Info) Description 11/15/2015 Correspondence [facility] [address] [facility] [address] [place] [address] Juli Bryson, [address] [place] [address] RX BREAST PUMP Social History Tobacco Use Types Packs/Day Years [...] on filedocumented in this encounter Care Teams Carbonator Relationship Specialty Start Date End Date No Primary/ReferringAlexa PCP - General 10/17/21 documented as of this encounter
--- OUTSIDE RECORDS SUMMARY | 2024-06-07 13:15 | XMS_ITS | Encounter Summary ---
Author [facility] Address [address] [place] [address] Care Team Providers Care Freight Shipping Agent Name Role Phone No Primary/Referring, Alexa Primary Care Provider Unavailable Encounter Details Date Type Department Care Team (Late st Contact Info) Description 10/24/2014 Consent for Procedure[facility], Provider CONSENT FOR BLOOD TRANSFUSION Social History Tobacco Use Types Packs/Day Years [...] on filedocumented in this encounter Care Teams Freight Shipping Agent Relationship Specialty Start Date End Date No Primary/ReferringAlexa PCP - General 10/17/21 documented as of this encounter
--- OUTSIDE RECORDS SUMMARY | 2024-06-07 13:15 | XMS_ITS | Encounter Summary ---
Author Organization [facility] Address [address] [place] [address] Care Team Providers Care Soft Crab Shedder Name Role Phone No Primary/Referring, Alexa Primary Care Provider Unavailable Encounter Details Date Type Department Care Team (Late st Contact Info) Description 11/14/2015 Consent for Procedure/Treatme nt Med Surg [address] [place] [address] [facility] INFORMED CONSENT Social History Tobacco Use [...] on filedocumented in this encounter Care Teams Soft Crab Shedder Relationship Specialty Start Date End Date No Primary/ReferringAlexa PCP - General 10/17/21 documented as of this encounter
== END 2024-06-07 08:31 | disposition home or self-care (01) ==
LOC: NFLDREF 13:06
PROVIDERS: PCP Family Medicine; Referring Provider Family Medicine; Visit Provider Family Medicine
DX: Z13.6 Encounter for screening for cardiovascular disorders (principal); Z13.9 Encounter for screening, unspecified
CPT/HCPCS: 80053; 80061

== ENCOUNTER 2024-09-20 16:03 | Outpatient (CLI) | payer SELFPAY | END 2024-09-20 16:04 | disposition home or self-care (01) | LOC: NFLDREF 16:07 | PROVIDERS: PCP Family Medicine; Visit Provider Family Medicine | DX: R73.03 Prediabetes (principal); R10.11 Right upper quadrant pain; Z13.21 Encounter for screening for nutritional disorder; Z13.0 Encounter for screening for diseases of the blood and blood-forming organs and certain disorders involving the immune mechanism; Z13.29 Encounter for screening for other suspected endocrine disorder | CPT/HCPCS: 80053; 82607; 82728; 83540; 83550; 84439; 84443 ==